=== PATIENT | female | born 1940 | race Caucasian/White ===

== ENCOUNTER 2016-09-14 20:47 | Emergency (ER) | payer MEDICARE, BC ==
[~2016-09-14] VITALS: Ht 162.6 cm; Wt 63.6 kg
[~2016-09-14 20:47] MED LIST: GABA-531 PO; LEVO50 PO; LOSA50TA37 PO; OMEP20 PO; ROSU20 PO; SERT50TA12 PO; SITA100 PO
[2016-09-14] MEDS ORDERED: SIMV-261 PO (21:23)
[2016-09-14] MEDS ORDERED: DSS100 PO (21:23)
[2016-09-14] MEDS ORDERED: ALEN70TA48 PO (21:23)
[2016-09-14] MEDS ORDERED: GABA-531 PO (21:23)
[2016-09-14 22:10] LABS: BASOPHILS % (AUTO) 0.6 % (0.0-2.0); EOSINOPHILS % (AUTO) 0.8 % (1.0-6.0); HEMATOCRIT 41.4 % (36-46); HEMOGLOBIN 13.6 g/dL (12.0-16.0); LYMPHOCYTES # (AUTO) 2.1 K/uL (1.0-4.8); LYMPHOCYTES % (AUTO) 21.6 % (22.0-44.0); MEAN CORPUSCULAR HEMOGLOBIN 29.7 pg (26.0-34.0); MEAN CORPUSCULAR HGB CONC 32.9 G/dL (31.0-37.0); MEAN CORPUSCULAR VOLUME 90 fL (80-100); MONOCYTES # (AUTO) 0.6 K/uL (0.1-1.0); MONOCYTES % (AUTO) 6.5 % (2.0-9.0); NEUTROPHILS # (AUTO) 6.7 K/uL (1.8-7.7); NEUTROPHILS % (AUTO) 70.5 % (40.0-70.0); PLATELET COUNT (AUTO) 334 K/uL (150-450); RED BLOOD CELL COUNT(AUTO) 4.58 MIL/uL (4.00-5.20); RED CELL DISTRIBUTION WIDTH 13.5 % (11.5-14.5); WHITE BLOOD COUNT (AUTO) 9.5 K/uL (4.5-11.0)
[2016-09-14 22:21] LABS: ANION GAP 8 mmol/L (8-16); CALCIUM, TOTAL 9.6 mg/dL (8.8-10.5); CARBON DIOXIDE 27 mmol/L (22-29); CHLORIDE 103 mmol/L (98-107); CREATININE 0.89 mg/dL (0.60-1.30); GLOMERULAR FILTR. RATE CALC > 60 mL/min (>60); POTASSIUM 4.7 mmol/L (3.5-5.1); SODIUM SERUM 138 mmol/L (136-145); UREA NITROGEN, BLOOD 20 mg/dL (7-18)
[2016-09-14 22:46] LABS: ALANINE AMINOTRANSFERASE 20 U/L (12-78); ALBUMIN 3.6 g/dL (3.4-5.0); ASPARTATE AMINOTRANSFERASE 13 U/L (15-37); BILIRUBIN,TOTAL 0.3 mg/dL (0.1-1.0); CREATINE KINASE, TOTAL 98 U/L (26-192); TOTAL PROTEIN, SERUM 7.8 g/dL (6.4-8.2)
[2016-09-15 00:15] VITALS: BP 119/66
== END 2016-09-15 00:46 | disposition home or self-care (01) ==
LOC: EMS 20:48
DX: R07.89 Other chest pain (principal); E11.9 Type 2 diabetes mellitus without complications; I10 Essential (primary) hypertension; E78.00 Pure hypercholesterolemia, unspecified; K21.9 Gastro-esophageal reflux disease without esophagitis; E03.9 Hypothyroidism, unspecified; Z88.0 Allergy status to penicillin
CPT/HCPCS: 82962; 93005; 99285

== ENCOUNTER → 2024-03-02 | Emergency (ER) | payer BC, MEDICARE ==
[~2024-03-02] VITALS: Ht 149.9 cm; Wt 56.8 kg
[~2024-03-02] MED LIST changes: +ACET-66 PO; +ALEN70TA65 PO; +DSS100 PO; +GABA-1181 PO; -GABA-531 PO; +LOSA-382 PO; -LOSA50TA37 PO; -ROSU20 PO; +SERT-158 PO; -SERT50TA12 PO; +SIMV-261 PO
[2024-03-02 14:16] VITALS: TEMP 98
[2024-03-02 14:30] LABS: GLUCOMETER DEV NAME(LOC) ER.7; GLUCOSE,POINT OF CARE 98 MG/DL (70-110)
[2024-03-02] MEDS: IBUPROFEN 200 MG TABLET PO ONE (16:09)
[2024-03-02] MEDS: HYDROCODONE/ACETAMINOPHEN 5-325 MG TABLET PO ONE (16:09)
[2024-03-02 18:41] VITALS: BP 129/66; PULSE 74; RESP 18
== END | disposition home or self-care (01) ==
LOC: EMS 14:05
DX: S00.03XA Contusion of scalp, initial encounter (principal); S80.11XA Contusion of right lower leg, initial encounter; S50.312A Abrasion of left elbow, initial encounter; E11.9 Type 2 diabetes mellitus without complications; Z88.0 Allergy status to penicillin; I10 Essential (primary) hypertension; K21.9 Gastro-esophageal reflux disease without esophagitis; V00.811A Fall from moving wheelchair (powered), initial encounter; Y93.89 Activity, other specified; Y92.89 Other specified places as the place of occurrence of the external cause; Y99.8 Other external cause status
CPT/HCPCS: 70450; 72125; 82962; 99284